=== PATIENT | female | born 1975 | race African-American/Black ===

== ENCOUNTER 2020-11-03 13:59 | Inpatient (IN) | payer OTHER ==
[~2020-11-03] VITALS: Ht 157.5 cm; Wt 127.0 kg
--- NOTE | ~2020-11-03 | OP ---
PATIENT NAME: MACKENZIE RIVERA MEDICAL RECORD: [id number] :73 LOCATION:[id number] ADMISSION DATE:11/03/20 SURGEON: CYNTHIA GARCIA MD DATE OF OPERATION: 11/04/2020 PREOPERATIVE DIAGNOSES: 1. Gallstones. 2. Hypertension. 3. Morbid obesity. POSTOPERATIVE DIAGNOSES: 1. Gallstones. 2. Hypertension. 3. Morbid obesity. PROCEDURE: Laparoscopic cholecystectomy. SURGEON: Cynthia Garcia MD DESCRIPTION OF PROCEDURE: The patient's abdomen was prepped and draped in sterile fashion. A cutdown was made on the superior aspect of the umbilicus; 0 Vicryls were placed on the fascia bilaterally and the fascia was incised with a 15-blade. I then bluntly entered the peritoneal cavity and placed a 12-mm Rufina port. Under direct visualization, a 5-mm trocar was placed in the epigastrium and two more 5-mm trocars were placed in the right subcostal region. The gallbladder was grasped and elevated. It was noted to be diffusely inflamed and needle was used to cannulate the gallbladder and some of the bilious fluid was removed. This made much more easier to grasp. We were able to dissect out the cystic artery and cystic duct and these were clipped proximally and distally and ligated in standard fashion. The gallbladder was taken off the liver bed using electrocautery and placed into an EndoCatch bag. Any bleeding from the liver bed was then treated with electrocautery. At this point, Dr. Monique with gynecology had asked if I could look at the patient's ovaries, but the patient had so many adhesions present in the pelvis from previous surgeries that we were not able to see. At this point, we discontinued the surgery. The ports and insufflation were then removed and the gallbladder was taken out through the umbilicus. The umbilical fascia was closed with interrupted 0 Vicryls times 3. The wounds were then irrigated out with normal saline and infused with 10 mL of 0.25% Marcaine with epinephrine. The skin incisions were all closed with subcutaneous 5-0 Monocryl and dressed appropriately. COMPLICATIONS: None. CONDITION: Stable. ANESTHESIA: General endotracheal and local. BLOOD LOSS: Minimal. TRANSINT:[id number] Voice Confirmation ID: [id number] DOCUMENT ID: [id number] OPERATIVE REPORT [id number] MACKENZIE RIVERA CHRISTIAN MD CC: [id number] DICTATION DATE: 11/04/20 1305 DISTILLATION OPERATOR: 11/04/20 1420 ADM IN [place] [id number] [facility], [facility]
[2020-11-03] MEDS ORDERED: LISINOPRIL10 MG PO (14:27)
[2020-11-03] MEDS ORDERED: REGLAN5 MG PO (14:28)
[2020-11-03 14:44] LABS: BASOPHILS 0.6 % (0-2); HEMATOCRIT 37.7 % (36.0-48.0); HEMOGLOBIN 12.4 g/dL (12-16); LYMPHOCYTES 16.2 % (15-50); MCH 24.7 pg (26.0-34.0); MCHC 32.9 g/dL (31.0-37.0); MCV 75.2 fL (80.0-100.0); MEAN PLATELET VOLUME 7.1 fL (7.4-10.4); MONOCYTES 6.3 % (2-11); NEUTROPHILS 74.9 % (40-80); RBC 5.02 10x6/uL (4.00-5.40); RDW 16.9 % (11.5-14.5); WBC 6.2 10x3/uL (4.8-10.8)
[2020-11-03 14:47] LABS: PLATELET COUNT 365 10x3/uL (130-400)
[2020-11-03 15:05] LABS: CALC OSMOLALITY 280 mosm/kg (275-300); CALCIUM 9.8 mg/dL (8.5-10.1); CARBON DIOXIDE 29.8 mmol/L (21.0-32.0); CHLORIDE - SERUM 101 mmol/L (98-107); CREATININE - SERUM 0.7 mg/dL (0.6-1.3); GLUCOSE 126 mg/dL (74-106); POTASSIUM - SERUM 3.7 mmol/L (3.5-5.1); SODIUM 139 mmol/L (136-145); UREA NITROGEN 15 mg/dL (7-18); eGFR NON AFRICAN AMERICAN > 90 mL/min (90-120)
[2020-11-03 15:14] LABS: ALBUMIN 3.7 g/dL (3.4-5.0); ALKALINE PHOSPHATASE 140 U/L (30-120); ALT (SGPT) 31 U/L (10-68); AMYLASE - SERUM 65 U/L (25-115); BILIRUBIN - TOTAL 0.37 mg/dL (0.2-1.3); LIPASE 93 U/L (73-393); PROTEIN - SERUM 8.4 g/dL (6.4-8.2)
[2020-11-03 15:16] LABS: TROPONIN-I < 0.017 ng/mL (0.000-0.060)
--- NOTE | 2020-11-03 17:20 | NUR ---
URINE SPEC COLLECTED, LABELED AT BS AND SENT TO LAB
[2020-11-03 17:38] LABS: BACTERIA FEW HPF (<MOD); BILIRUBIN NEGATIVE (NEGATIVE); KETONE NEGATIVE mg/dL (< 1+); NITRITE NEGATIVE (NEGATIVE); SQUAMOUS EPITHELIAL 5 HPF (0-4); UROBILINOGEN NORMAL mg/dL (< 2); WHITE CELLS - URINE 3 HPF (0-4)
[2020-11-03 23:10] VITALS: BP 149/68
[2020-11-04] VITALS (8 sets, daily range): BP systolic 98–139; BP diastolic 46–83; Ht 157.5 cm; Wt 127.0 kg
--- NOTE | 2020-11-04 00:15 | NUR ---
ARRIVED TO ROOM 2223 VIA STRETCHER ACCCOMPANIED BY ER NURSE. AMBULATED WITH SLOW STEADY GAIT TO BED WITH BACKBACK. LEFT AC PIV INFUSING NS AT 75CC/HR. DRESSING C/D/I SWAB CAPS PRESENT. ABDOMEN NOTED WITH DISTENTION AND TENDER, NO N/V AT THIS TIME. EDCUATION PROVIDED FOR CALL LIGHT AND NEEDS. CALL LIGHT IN REACH, BED LOCKED IN LOW POSITION.
[2020-11-04 05:48] LABS: BASOPHILS 0.4 % (0-2); EOSINOPHILS 1.1 % (0-7); HEMATOCRIT 35.6 % (36.0-48.0); HEMOGLOBIN 11.4 g/dL (12-16); LYMPHOCYTES 14.8 % (15-50); MCH 24.6 pg (26.0-34.0); MCHC 32.1 g/dL (31.0-37.0); MCV 76.5 fL (80.0-100.0); MEAN PLATELET VOLUME 7.7 fL (7.4-10.4); MONOCYTES 8.3 % (2-11); NEUTROPHILS 75.4 % (40-80); PLATELET COUNT 320 10x3/uL (130-400); RBC 4.65 10x6/uL (4.00-5.40); RDW 16.8 % (11.5-14.5)
[2020-11-04 05:57] LABS: INR 1.18 (0.85-1.17); PROTIME 13.9 SECONDS (11.6-15.0)
[2020-11-04 06:10] LABS: ALBUMIN 3.3 g/dL (3.4-5.0); ALKALINE PHOSPHATASE 129 U/L (30-120); BILIRUBIN - TOTAL 0.39 mg/dL (0.2-1.3); CALCIUM 9.4 mg/dL (8.5-10.1); CARBON DIOXIDE 26.8 mmol/L (21.0-32.0); CHLORIDE - SERUM 100 mmol/L (98-107); CREATININE - SERUM 0.6 mg/dL (0.6-1.3); GLUCOSE 116 mg/dL (74-106); MAGNESIUM - SERUM 1.8 mg/dL (1.8-2.4); PHOSPHOROUS 3.5 mg/dL (2.5-4.9); POTASSIUM - SERUM 3.7 mmol/L (3.5-5.1); PROTEIN - SERUM 7.7 g/dL (6.4-8.2); SODIUM 135 mmol/L (136-145); eGFR NON AFRICAN AMERICAN > 90 mL/min (90-120)
[2020-11-04 06:13] LABS: ALT (SGPT) 22 U/L (10-68); CALC OSMOLALITY 269 mosm/kg (275-300); UREA NITROGEN 11 mg/dL (7-18)
--- NOTE | 2020-11-04 08:20 | NUR ---
PT. RESTING IN BED, ALERT AND ORIENTED. DENIES ANY PAIN. BOWEL SOUNDS POSITIVE IN ALL 4 QUADRANTS. IV INFUSING TO R. ARM. CALL LIGHT WITHIN REACH. SRUPX2.
--- NOTE | 2020-11-04 13:07 | NUR ---
I have reviewed this patient and I concur with the Shift Assessment completed by the Licensed Practical Nurse today this shift.
[2020-11-04] MEDS ORDERED: HYDROCODON-ACE1 EA10 PO (13:16)
--- NOTE | 2020-11-04 13:39 | NUR ---
PT. ARRIVED BACK FROM OR VIA BED. AWAKE AND ALERT. ICE CHIPS GIVEN. IV INTACT TO R. AC. LAP SITES TO ABDOMEN CLEAN AND DRY. VITALS STABLE. VISITOR AT BEDSIDE. CL WITHIN REACH. SRUPX2.
--- NOTE | 2020-11-04 15:47 | NUR ---
PT. AMBULATED TO BATHROOM TO VOID AND BACK TO BED. TOLERATED PRN PO HYDROCODONE FOR PAIN. CL IN REACH. VISITOR IN ROOM.
--- NOTE | 2020-11-04 16:11 | NUR ---
SPOKE TO DR OVIEDO WHILE PATIENT WAS IN SURGERY, PER DR OVIEDO PATIENT CAN BE SEEN ON AN OUTPATIENT BASIS. RELAYED MESSAGE TO DR HENDERSON WHILE SPEAKING TO HER ABOUT PIPIDA ORDERED AND CANCELLED. NO OTHER NEEDS AT THIS TIME. CONTINUE WITH PLAN OF CARE
--- NOTE | 2020-11-04 20:30 | NUR ---
RECIEVED BEDSIDE REPORT. AWAKE AND ALERT WITH FAMILY AT BEDSIDE. S/P LAP CHOLESYSTECTOMY. LAP SITES X 3 TO ABDOMEN PIV TO RIGHT AC PATENT DRESSING C/D/I AND INFUSING. C/O PAIN 5/10 TO ABDOMEN. MORPHINE PER ORDERS EFFECTIVE. EDUCATION PROVIDED FOR SPLINTING, I/S, COUGH/DEEP BREATHING, AND CALL LIGHT. CALL LIGHT IN REACH BED LOCKED IN LOW POSITION.
[2020-11-05 03:53] VITALS: BP 132/76
[2020-11-05 07:38] LABS: ALBUMIN 2.8 g/dL (3.4-5.0); ALKALINE PHOSPHATASE 108 U/L (30-120); BASOPHILS 0.2 % (0-2); BILIRUBIN - TOTAL 0.27 mg/dL (0.2-1.3); CALCIUM 8.5 mg/dL (8.5-10.1); CARBON DIOXIDE 27.9 mmol/L (21.0-32.0); CHLORIDE - SERUM 103 mmol/L (98-107); EOSINOPHILS 0.2 % (0-7); GLUCOSE 108 mg/dL (74-106); HEMATOCRIT 33.6 % (36.0-48.0); HEMOGLOBIN 10.7 g/dL (12-16); LYMPHOCYTES 10.4 % (15-50); MAGNESIUM - SERUM 1.9 mg/dL (1.8-2.4); MCH 24.4 pg (26.0-34.0); MCV 76.2 fL (80.0-100.0); MEAN PLATELET VOLUME 7.3 fL (7.4-10.4); NEUTROPHILS 79.2 % (40-80); PLATELET COUNT 286 10x3/uL (130-400); POTASSIUM - SERUM 3.6 mmol/L (3.5-5.1); PROTEIN - SERUM 6.9 g/dL (6.4-8.2); RDW 17.2 % (11.5-14.5); SODIUM 138 mmol/L (136-145); WBC 6.6 10x3/uL (4.8-10.8)
[2020-11-05 07:39] LABS: ALT (SGPT) 29 U/L (10-68); CALC OSMOLALITY 277 mosm/kg (275-300); CREATININE - SERUM 0.8 mg/dL (0.6-1.3); UREA NITROGEN 15 mg/dL (7-18); eGFR NON AFRICAN AMERICAN 82 mL/min (90-120)
[2020-11-05 07:41] VITALS: BP 118/67
--- NOTE | 2020-11-05 16:19 | NUR ---
I have reviewed this patient and I concur with the Shift Assessment completed by the Licensed Practical Nurse today this shift.
--- NOTE | 2020-11-06 07:57 | MORECARE ---
CASE MANAGEMENT DISCHARGE SUMMARY PATIENT: MACKENZIE RIVERA UNIT: [id number] ADM DATE: 11/04/20 AGE: 45 : 73 SEX: F [facility] AUTHOR: MO,DOC PHYSICIAN: REFERRING PHYSICIAN: PABLO MCKEON MD DATE OF SERVICE: 11/06/20 Case Management Discharge Planning Summary DCP REVIEW SUMMARY ANTICIPATED D/C DATE: EXPECTED LOS : CASE STATUS: DCP Complete INITIAL REVIEW: 11/03/2020 INITIAL REVIEWER: Yissel Guthrie FINAL DISCHARGE DISPOSITION: : FINAL REVIEWER: FINAL REVIEW DATE: DCP [employer] Questions [employer] Answers QUESTION: ANSWER : PATIENT: MACKENZIE RIVERA ENCOUNTER: [id number] MEDICAL RECORD#: [id number] ADMISSION DATE: 11/04/2020 DISCHARGE DATE: 11/05/2020 ATTENDING MD: PABLO RASHID : AGE: 45 MARITAL STATUS: D DC PLAN ID: [id number] FACILITY: [facility] PRINTED ON: 11/06/20 7:57 CT All edits/amendments must be made on the electronic document DICTATION DATE: 11/06/20 075 HUMAN RESOURCES OFFICE ASSISTANT: JG 11/06/20 0757 RPT#: [id number] DC DATE:11/05/20 STATUS: DIS IN [facility] [address] [place] [address] END OF REPORT
== END 2020-11-05 16:20 | disposition home or self-care (01) | DRG 418 ==
LOC: D.ER 13:59 → D.MS 20:41 → D.EDHOLD 20:41 → OBSVTIME 20:46 → D.MS 22:40
PROVIDERS: Family Medicine; Surgery; ADMIT Emergency Medicine; ATTEND Emergency Medicine
PROC: 0FT44ZZ Resection of Gallbladder, Percutaneous Endoscopic Approach (ICD-10-PCS; principal; 2020-11-04 11:30)
DX: K80.20 Calculus of gallbladder without cholecystitis without obstruction (principal); Z68.43 Body mass index [BMI] 50.0-59.9, adult; G89.18 Other acute postprocedural pain; I10 Essential (primary) hypertension; E66.01 Morbid (severe) obesity due to excess calories; N83.202 Unspecified ovarian cyst, left side